=== PATIENT | female | born 1965 | race Caucasian/White ===

== ENCOUNTER 2019-01-08 07:46 | Emergency (ER) | payer SELFPAY ==
[~2019-01-08] VITALS: Ht 157.5 cm; Wt 80.0 kg
[2019-01-08 07:50] VITALS: BP 156/78; PULSE 85; RESP 18; Ht 157.5 cm; Wt 80.0 kg
[2019-01-08] MEDS ORDERED: KETOROLAC 60 MG INJ IM STA (08:28)
[2019-01-08] MEDS ORDERED: traMADol-APAP 37.5-325 1 TAB PO ONE (08:30)
[2019-01-08] MEDS ORDERED: CYCLOBENZAPRINE 10 MG TAB PO ONE (08:30)
[2019-01-08] MEDS ORDERED: CYCL10TA7 PO (08:54)
[2019-01-08] MEDS ORDERED: NAPR-985 PO (08:54)
[2019-01-08] MEDS ORDERED: ACETAMINOPHEN 325 MG TAB PO ONE (09:00)
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
== END 2019-01-08 09:04 | disposition home or self-care (01) ==
LOC: FTE 07:46
DX: S16.1XXA Strain of muscle, fascia and tendon at neck level, initial encounter (principal); V59.69XA Unspecified occupant of pick-up truck or van injured in collision with other motor vehicles in traffic accident, initial encounter
CPT/HCPCS: 96372; 99284; J1885